=== PATIENT | female | born 1990 | race Caucasian/White ===

== ENCOUNTER 2017-06-13 21:59 | Emergency (ER) | payer OTHER ==
[~2017-06-13] VITALS: Ht 167.6 cm; Wt 99.8 kg
[2017-06-13] MEDS ORDERED: BUPROPION XL150 MG PO (22:12)
== END 2017-06-13 23:48 | disposition home or self-care (01) ==
LOC: ED 21:59
DX: S60.222A Contusion of left hand, initial encounter (principal); F32.9 Major depressive disorder, single episode, unspecified; Z91.040 Latex allergy status; Z88.1 Allergy status to other antibiotic agents; Z79.899 Other long term (current) drug therapy; W23.0XXA Caught, crushed, jammed, or pinched between moving objects, initial encounter; Y92.69 Other specified industrial and construction area as the place of occurrence of the external cause; Y99.0 Civilian activity done for income or pay
CPT/HCPCS: 73130; 99283

== ENCOUNTER 2019-07-24 09:49 | Emergency (ER) | payer OTHER ==
[~2019-07-24] VITALS: Ht 167.6 cm; Wt 99.8 kg
[~2019-07-24 09:49] MED LIST: BUPROPION XL150 MG PO
[2019-07-24] MEDS ORDERED: AMOXICILLIN500 MG PO (11:43)
[2019-07-24] MEDS ORDERED: ZITHROMAX250 MG PO (11:43)
== END 2019-07-24 12:04 | disposition home or self-care (01) ==
LOC: ED 09:49
DX: J18.9 Pneumonia, unspecified organism (principal); F32.9 Major depressive disorder, single episode, unspecified
CPT/HCPCS: 71046; 99283-25